=== PATIENT | male | born 2000 | race Two or more races ===

== ENCOUNTER 2018-11-22 21:58 | Emergency (ER) | payer MEDICAID ==
[~2018-11-22] VITALS: Ht 180.3 cm; Wt 72.6 kg
[~2018-11-22 21:58] MED LIST: ALBU0.63 NEB; CETI1SOL48 PO; MONT10TA22 PO
--- NOTE | 2018-11-22 22:15 | NUR ---
Patient ambulated with stable gait. Speech clear, speaks in complete sentences. No neuro deficits. A/Ox4. Patient came in for r.testicular pain since last night. Pain 6/10 only when he touches it. No respiratory distress noted, no cough no sob. No cardiovascular distress. Denies any issues, is able to urinate without having pain. No GI distress.
--- NOTE | 2018-11-22 22:17 | NUR ---
Radiology contacted to reach out to [facility] for scan.
[2018-11-22 22:34] LABS: *BILIRUBIN,URIN NEGATIVE (NEGATIVE); *BLOOD, URINE NEGATIVE (NEGATIVE); *CLARITY,URINE CLEAR (CLEAR); *COLOR,URINE YELLOW (YELLOW); *KETONES,URINE NEGATIVE (NEGATIVE); LEUKOCYTE ESTERASE ,URINE NEGATIVE (NEGATIVE); NITRITE, URINE NEGATIVE (NEGATIVE); UGLUCOSE NEGATIVE (NEGATIVE)
[2018-11-22 22:48] LABS: BACTERIA,URINE NONE SEEN /HPF (NONE SEEN); SQUAMOUS EPITHELIAL CELL,UR FEW /HPF (NONE SEEN); WBC,URINE NONE SEEN /HPF (0-3)
[2018-11-22 22:50] LABS: RBC,URINE NONE SEEN /HPF (0-3)
--- NOTE | 2018-11-22 23:14 | NUR ---
US at bedside for scan
[2018-11-23] MEDS ORDERED: DOXYCYCLINE HYCLATE 100 MG TABLET PO ONE (00:30)
[2018-11-23] MEDS ORDERED: IBUPROFEN 800 MG TABLET PO ONE (00:30)
[2018-11-23] MEDS ORDERED: DOXYCYCLINE HYCLATE 100 MG TABLET ONE (00:35)
[2018-11-23] MEDS ORDERED: IBUPROFEN 800 MG TABLET ONE (00:35)
--- NOTE | 2018-11-23 00:44 | NUR ---
Patient discharged to home in stable conditon. Written and verbal after care instructions given. Patient verbalizes understanding of instructions. Ambulated with stable gait.
[2018-11-25 18:10] LABS: *GC NAA Negative (Negative); *TRIC.VAG. NAA Negative (Negative)
== END 2018-11-23 00:46 | disposition home or self-care (01) ==
LOC: ER 21:59
DX: N45.1 Epididymitis (principal); J45.909 Unspecified asthma, uncomplicated; Z79.899 Other long term (current) drug therapy
CPT/HCPCS: 76870; 87491; A4663

== ENCOUNTER 2018-12-19 00:15 | Emergency (ER) | payer MEDICAID ==
[~2018-12-19] VITALS: Ht 180.3 cm; Wt 77.1 kg
--- NOTE | 2018-12-19 00:40 | NUR ---
Dr. Levy at bedside for MSE.
[2018-12-19] MEDS ORDERED: ALBUTEROL SULFATE 2.5 MG/3 ML NEBU NEB ONE (00:45)
[2018-12-19] MEDS ORDERED: IPRATROPIUM BROMIDE 0.5 MG/2.5 ML NEBU NEB ONE (00:45)
[2018-12-19] MEDS ORDERED: IPRATROPIUM BROMIDE 0.5 MG/2.5 ML NEBU ONE (00:48)
[2018-12-19] MEDS ORDERED: ALBUTEROL SULFATE 2.5 MG/3 ML NEBU ONE (00:48)
--- NOTE | 2018-12-19 01:11 | NUR ---
patient received breathing treatment and stated he feels relieved. patient denies any pain or respiratory discomfort. Patient discharged to home in stable conditon. Written and verbal after care instructions given. Patient verbalizes understanding of instructions. Provided patient with education regarding diagnosis and medical prescription. all belongings taken with patient. Patient is ambulatory and alert and oriented x4.
[2018-12-19 01:16] VITALS: BP 108/62
== END 2018-12-19 01:18 | disposition home or self-care (01) ==
LOC: ER 00:19
DX: J45.909 Unspecified asthma, uncomplicated (principal); Z79.899 Other long term (current) drug therapy
CPT/HCPCS: A4663; J3590